=== PATIENT | male | born 1950 | race Caucasian/White ===

== ENCOUNTER 2017-04-11 14:36 | Inpatient (IN) | payer OTHER ==
[~2017-04-11] VITALS: Ht 177.8 cm; Wt 134.3 kg
[~2017-04-11 14:36] MED LIST: AMOX1TAB61 PO; FURO-68 PO; FURO20TA3 PO; GLIP10TA13 PO; METF-620 PO; Mineral Oil/Petrolatum,White TP
[2017-04-11] MEDS ORDERED: GLIP10TA13 PO (16:45)
[2017-04-11] MEDS ORDERED: [UNRECOGNIZED DRUG - OTHER] PO (16:45)
[2017-04-11] MEDS ORDERED: METF-620 PO (16:45)
[2017-04-11] MEDS ORDERED: DEXTROSE 50% 25 GM / 50ML DISP.SYRIN. IV PRN ×2 (17:00→17:30)
[2017-04-11] MEDS ORDERED: ACETAMINOPHEN 500 MG TABLET PO PRN (17:30)
[2017-04-11] MEDS ORDERED: ONDANSETRON PF 4 MG/2 ML VIAL. IV PRN (17:30)
[2017-04-11] MEDS ORDERED: 0.9 % SODIUM CHLORIDE 10 ML DISP.SYRIN. IV PRN (17:30)
[2017-04-11] MEDS ORDERED: GABA-586 PO (17:36)
[2017-04-11] MEDS: INSULIN ASPART 300 UNITS/3 ML INSULN.PEN SQ SCH ×2 (17:52→17:54)
[2017-04-11] MEDS: VANCOMYCIN PER PHARMACY MC PRN (18:31)
[2017-04-11] MEDS: PIPERACILLIN/TAZOBACTAM 3.375 GM in IV NORMAL SALINE 50ML 50 ML IV SCH ×2 (18:32→23:45)
[2017-04-11 19:00] VITALS: BP 122/60
[2017-04-11] MEDS: VANCOMYCIN 2 GM in IV NORMAL SALINE 500ML BAG 500 ML IV SCH (19:44)
[2017-04-11] MEDS ORDERED: GABAPENTIN 300 MG CAPSULE. PO SCH (21:00)
[2017-04-11] MEDS ORDERED: INSULIN ASPART 300 UNITS/3 ML INSULN.PEN SQ ONE (21:00)
[2017-04-11] MEDS: INSULIN DETEMIR 300 UNITS/3 ML INSULN.PEN. SQ SCH (21:17)
[2017-04-11] MEDS ORDERED: GABAPENTIN 300 MG CAPSULE. PO ONE (21:30)
[2017-04-11 23:00] VITALS: BP 128/73
[2017-04-12 03:00] VITALS: BP 136/74
[2017-04-12 04:42] LABS: BASO % 1 % (0-3); EOS % 3 % (0-3); HEMATOCRIT 41.4 % (39.0-53.0); HEMOGLOBIN 13.9 g/dL (13.0-17.5); LYMPH % 37 % (24-48); MEAN CORPUSCULAR HEMOGLOBIN 30 pg (25-35); MEAN CORPUSCULAR HGB CONC 33 g/dL (31-37); MEAN CORPUSCULAR VOLUME 90 fL (79-100); MONO % 8 % (0-9); NEUT % 51 % (31-73); PLATELET COUNT 129 x10^3/uL (140-400); RED BLOOD COUNT 4.63 x10^6/uL (4.30-5.70); WHITE BLOOD COUNT 5.5 x10^3/uL (4.0-11.0)
[2017-04-12 05:02] LABS: ALBUMIN 2.5 g/dL (3.4-5.0); ALBUMIN/GLOBULIN RATIO 0.8 (1.0-1.7); CALCIUM 8.6 mg/dL (8.5-10.1); CREATININE 1.4 mg/dL (0.7-1.3); GFR 50.7; TOTAL BILIRUBIN 0.8 mg/dL (0.2-1.0); TOTAL PROTEIN 5.7 g/dL (6.4-8.2)
[2017-04-12 05:05] LABS: POTASSIUM 2.9 mmol/L (3.5-5.1)
[2017-04-12] MEDS: PIPERACILLIN/TAZOBACTAM 3.375 GM in IV NORMAL SALINE 50ML 50 ML IV SCH ×3 (05:57→17:26)
[2017-04-12 07:00] VITALS: BP 117/73
[2017-04-12] MEDS: INSULIN ASPART 300 UNITS/3 ML INSULN.PEN SQ SCH ×6 (08:00→17:25)
[2017-04-12] MEDS: POTASSIUM CHLORIDE 20 MEQ TABLET.ER. PO SCH ×3 (08:00→17:20)
[2017-04-12] MEDS ORDERED: INSULIN ASPART 300 UNITS/3 ML INSULN.PEN SQ SCH (08:00)
[2017-04-12] MEDS: VANCOMYCIN 2 GM in IV NORMAL SALINE 500ML BAG 500 ML IV SCH ×2 (08:19→20:16)
--- NOTE | 2017-04-12 08:35 | RAD ---
Left foot radiographs History: Ulceration of the great toe on the plantar surface. Diabetic. Comparison: None. Findings: AP, lateral, and oblique views of the left foot. No acute osseous abnormality or osteolysis is appreciated. Bandage has been applied to the first digit. No radiopaque foreign body is seen. There is soft tissue swelling of the forefoot. Plantar calcaneal and Achilles tendon insertional enthesophytes are present. Impression: No osteolysis to suggest osteomyelitis is identified, although radiographic evidence of such would be a relatively late finding.
--- NOTE | 2017-04-12 08:58 | PDOC ---
PROGRESS NOTES Subjective Subjective Patient feels swelling in feet is improving, denies pain. Objective Objective Vital Signs Date Time Temp Pulse Resp B/P (MAP) Pulse Ox O2 Delivery O2 Flow Rate FiO2 04/12/17 07:00 97.4 63 20 117/73 (88) 93 Room Air 97.4 Intake and Output 04/12/17 07:00 Intake Total 400 ml Output Total 500 ml Balance -100 ml Intake Oral 400 ml Output Urine Total 500 ml # Voids 1 Physical Exam Abdomen: Normal bowel sounds, Soft, No tenderness Heart: Regular rate Extremities: Other (2+ pitting edema bilateral LE's with chronic venous stasis changes, ulcers on left leg and left great toe covered by dressings) General: Alert, Oriented X3, No acute distress Lungs: Other (BS decreased throughout but otherwise CTA) Plan Plan of Care 1. Cellulitis left great toe with ulcer - xrays did not show evidence of osteomyelitis. Have started patient on Vancomycin and Zosyn, ID consult pending. Continue wound care, patient advised to elevate legs as much as possible. 2. DM2 - had been out of control prior to admission with recent A1C 12.9 and glucose over 500 on office lab. Patient reports he has not been compliant with diet at home. Possibility of needing to start insulin discussed with him, he is considering. C peptide ordered and pending. Continue insulins while here, glucose much improved this AM after Levemir last night. 3. hypokalemia - replace po and follow lab. 4. peripheral neuropathy with pain - stable, continue Gabapentin. Comment Review of Relevant I have reviewed the following items aakash (where applicable) has been applied. Labs Laboratory Tests Test 04/11/17 17:06 04/11/17 20:33 04/12/17 04:30 04/12/17 07:17 Glucose (Fingerstick) 360 mg/dL (70-99) 351 mg/dL (70-99) 104 mg/dL (70-99) White Blood Count 5.5 x10^3/uL (4.0-11.0) Red Blood Count 4.63 x10^6/uL (4.30-5.70) Hemoglobin 13.9 g/dL (13.0-17.5) Hematocrit 41.4 % (39.0-53.0) Mean Corpuscular Volume 90 fL (79-100) Mean Corpuscular Hemoglobin 30 pg (25-35) Mean Corpuscular Hemoglobin Concent 33 g/dL (31-37) Red Cell Distribution Width 13.0 % (11.5-14.5) Platelet Count 129 x10^3/uL (140-400) Neutrophils (%) (Auto) 51 % (31-73) Lymphocytes (%) (Auto) 37 % (24-48) Monocytes (%) (Auto) 8 % (0-9) Eosinophils (%) (Auto) 3 % (0-3) Basophils (%) (Auto) 1 % (0-3) Neutrophils # (Auto) 2.8 x10^3uL (1.8-7.7) Lymphocytes # (Auto) 2.0 x10^3/uL (1.0-4.8) Monocytes # (Auto) 0.5 x10^3/uL (0.0-1.1) Eosinophils # (Auto) 0.2 x10^3/uL (0.0-0.7) Basophils # (Auto) 0.0 x10^3/uL (0.0-0.2) Sodium Level 145 mmol/L (136-145) Potassium Level 2.9 mmol/L (3.5-5.1) Chloride Level 106 mmol/L (98-107) Carbon Dioxide Level 31 mmol/L (21-32) Anion Gap 8 (6-14) Blood Urea Nitrogen 13 mg/dL (8-26) Creatinine 1.4 mg/dL (0.7-1.3) Estimated GFR (Cockcroft-Gault) 50.7 BUN/Creatinine Ratio 9 (6-20) Glucose Level 105 mg/dL (70-99) Calcium Level 8.6 mg/dL (8.5-10.1) Total Bilirubin 0.8 mg/dL (0.2-1.0) Aspartate Amino Transf (AST/SGOT) 28 U/L (15-37) Alanine Aminotransferase (ALT/SGPT) 30 U/L (16-63) Alkaline Phosphatase 83 U/L (46-116) Total Protein 5.7 g/dL (6.4-8.2) Albumin 2.5 g/dL (3.4-5.0) Albumin/Globulin Ratio 0.8 (1.0-1.7) Laboratory Tests Test 04/11/17 17:06 04/11/17 20:33 04/12/17 04:30 04/12/17 07:17 Glucose (Fingerstick) 360 mg/dL (70-99) 351 mg/dL (70-99) 104 mg/dL (70-99) White Blood Count 5.5 x10^3/uL (4.0-11.0) Red Blood Count 4.63 x10^6/uL (4.30-5.70) Hemoglobin 13.9 g/dL (13.0-17.5) Hematocrit 41.4 % (39.0-53.0) Mean Corpuscular Volume 90 fL (79-100) Mean Corpuscular Hemoglobin 30 pg (25-35) Mean Corpuscular Hemoglobin Concent 33 g/dL (31-37) Red Cell Distribution Width 13.0 % (11.5-14.5) Platelet Count 129 x10^3/uL (140-400) Neutrophils (%) (Auto) 51 % (31-73) Lymphocytes (%) (Auto) 37 % (24-48) Monocytes (%) (Auto) 8 % (0-9) Eosinophils (%) (Auto) 3 % (0-3) Basophils (%) (Auto) 1 % (0-3) Neutrophils # (Auto) 2.8 x10^3uL (1.8-7.7) Lymphocytes # (Auto) 2.0 x10^3/uL (1.0-4.8) Monocytes # (Auto) 0.5 x10^3/uL (0.0-1.1) Eosinophils # (Auto) 0.2 x10^3/uL (0.0-0.7) Basophils # (Auto) 0.0 x10^3/uL (0.0-0.2) Sodium Level 145 mmol/L (136-145) Potassium Level 2.9 mmol/L (3.5-5.1) Chloride Level 106 mmol/L (98-107) Carbon Dioxide Level 31 mmol/L (21-32) Anion Gap 8 (6-14) Blood Urea Nitrogen 13 mg/dL (8-26) Creatinine 1.4 mg/dL (0.7-1.3) Estimated GFR (Cockcroft-Gault) 50.7 BUN/Creatinine Ratio 9 (6-20) Glucose Level 105 mg/dL (70-99) Calcium Level 8.6 mg/dL (8.5-10.1) Total Bilirubin 0.8 mg/dL (0.2-1.0) Aspartate Amino Transf (AST/SGOT) 28 U/L (15-37) Alanine Aminotransferase (ALT/SGPT) 30 U/L (16-63) Alkaline Phosphatase 83 U/L (46-116) Total Protein 5.7 g/dL (6.4-8.2) Albumin 2.5 g/dL (3.4-5.0) Albumin/Globulin Ratio 0.8 (1.0-1.7) Medications Current Medications Insulin Aspart (NovoLOG) 0-9 UNITS TIDWMEALS SQ Last administered on 04/11/17 17:52; Start 04/11/17 at 17:00 Dextrose (Dextrose 50%-Water Syringe) 12.5 gm PRN Q15MIN PRN IV SEE COMMENTS; Start 04/11/17 at 17:00 Sodium Chloride (Normal Saline Flush) 3 ml PRN DAILY PRN IV AFTER MEDS AND BLOOD DRAWS; Start 04/11/17 at 17:30 Ondansetron HCl (Zofran) 4 mg PRN Q6HRS PRN IV NAUSEA/VOMITING; Start 04/11/17 at 17:30 Insulin Detemir (Levemir) 10 units QHS SQ Last administered on 04/11/17 21:17; Start 04/11/17 at 21:00 Insulin Aspart (NovoLOG) 0-9 UNITS TIDWMEALS SQ ; Start 04/12/17 at 08:00; Stop 04/12/17 at 08:00; Status DC Dextrose (Dextrose 50%-Water Syringe) 12.5 gm PRN Q15MIN PRN IV SEE COMMENTS; Start 04/11/17 at 17:30 Insulin Aspart (NovoLOG) 10 units TIDAC SQ Last administered on 04/12/17 08:27 ; Start 04/11/17 at 18:00 Vancomycin HCl (Vanco Per Pharmacy) 1 each PRN DAILY PRN MC SEE COMMENTS Last administered on 04/11/17 18:31; Start 04/11/17 at 17:30 Piperacillin Sod/ Tazobactam Sod 3.375 gm/Sodium Chloride 50 ml @ 100 mls/hr Q6HRS IV Last administered on 04/12/17 05:57; Start 04/11/17 at 18:00 Acetaminophen (Tylenol) 1,000 mg PRN Q6HRS PRN PO MILD PAIN / TEMP; Start at 17:30 Metformin HCl (Glucophage) 1,000 mg BIDWMEALS PO Last administered on 04/12/17 08:19; Start 04/11/17 at 18:00 Vancomycin HCl 2 gm/Sodium Chloride 500 ml @ 250 mls/hr Q12H IV Last administered on 04/12/17 08:19; Start 04/11/17 at 20:00 Vancomycin HCl 1 each 1X ONCE MC Last administered on 04/12/17 05:30; Start at 05:30; Stop 04/12/17 at 05:31; Status DC Gabapentin (Neurontin) 300 mg BID PO Last administered on 04/11/17 21:12; Start 04/11/17 at 21:00; Stop 04/11/17 at 21:19; Status DC Insulin Aspart (NovoLOG) 10 units 1X ONCE SQ Last administered on 04/11/17 21: 17; Start 04/11/17 at 21:00; Stop 04/11/17 at 21:01; Status DC Gabapentin (Neurontin) 300 mg 1X ONCE PO Last administered on 04/11/17 21:34; Start 04/11/17 at 21:30; Stop 04/11/17 at 21:31; Status DC Gabapentin (Neurontin) 600 mg HS PO ; Start 04/12/17 at 21:00 Potassium Chloride (Klor-Con) 20 meq TIDWMEALS PO Last administered on 08:00; Start 04/12/17 at 08:00 Vancomycin HCl 1 each 1X ONCE MC ; Start 04/13/17 at 07:30; Stop 04/13/17 at 07: 31 Active Scripts Active Gabapentin 300 Mg Capsule 300 Mg PO BID 60 Days Reported Glipizide 10 Mg Tablet 2 Tab PO BID Metformin Hcl 1,000 Mg Tablet 1,000 Mg PO BIDWMEALS Vitals/I & O Vital Sign - Last 24 Hours 04/11/17 04/11/17 04/11/17 04/11/17 19:00 19:15 20:00 23:00 Temp 97.6 97.5 97.6 97.5 Pulse 72 71 Resp 18 18 B/P (MAP) 122/60 (80) 128/73 (91) Pulse Ox 96 96 O2 Delivery Room Air Room Air Room Air Room Air 04/12/17 04/12/17 03:00 07:00 Temp 97.5 97.4 97.5 97.4 Pulse 64 63 Resp 18 20 B/P (MAP) 136/74 (94) 117/73 (88) Pulse Ox 94 93 O2 Delivery Room Air Room Air Intake and Output 04/11/17 04/11/17 04/12/17 15:00 23:00 07:00 Intake Total 400 ml Output Total 500 ml Balance 400 ml -500 ml RENATE PEREZ MD Apr 12, 2017 08:58
--- NOTE | 2017-04-12 09:13 | ACF ---
Admission Forms Criteria CELLULITIS Clinical Indications for Admission to Inpatient Care (Place 'X' for any and all applicable criteria): Admission is indicated for ANY ONE of the following(1)(2)(3)(4)(5): [ ]I. Limb-threatening infection [ ]II. High-risk comorbid condition as indicated by ANY ONE of the following: [ ]a) Uncontrolled diabetes (eg, HbA1c greater than 10% (0.1)) [ ]b) Cirrhosis [ ]c) Neutropenia [ ]d) Asplenia [ ]e) Immunosuppression [ ]f) Symptomatic heart failure [ ]III. Failure of outpatient therapy as indicated by ALL of the following: [ ]a) Progression or no improvement after adequate trial (minimum of 48 hours, with longer period for stable lower extremity infection) [ ]b) Adequate antibiotic regimen as indicated by use of ANY ONE of the following: [ ]i) First-generation cephalosporin (e.g., cephalexin) [ ]ii) Antistaphylococcal penicillin (e.g., dicloxacillin) [ ]iii) Penicillin-allergic patient regimen (clindamycin, extended-spectrum fluoroquinolone, or doxycycline) [ ]iv) Resistant organism (eg, methicillin-resistant Staphylococcus aureus) regimen (6) [ ]c) Outpatient intravenous therapy regimen is not appropriate due to ANY ONE of the following. (7)(8)(9)(10): [ ]i) It was tried and was not successful (eg, progression of infection). [ ]ii) It is not available or cannot be arranged in a clinically appropriate time frame (e.g., the next day). [ ]iii) Clinical presentation (eg, acuity of infection, rapidity of progression, confirmed or suspected bacteremia) is judged to require ALL of the following: [ ]1) Immediate initiation of intravenous therapy ( eg, cannot wait for next day) [ ]2) Intensity of patient monitoring and observation (eg, vital sign measurement, checks for infection progression) that cannot be provided at other than inpatient level of care [ ]IV. Mental status changes [ ]V. Bacteremia [ ]. Hemodynamic instability [ ]VII. Suspected necrotizing soft tissue infection (e.g., gas in tissue)(11)( 12) [ ]VIII. Orbital infection (13)(14) [ ]IX. Associated surgical procedure (e.g., abscess drainage, debridement) not amenable to outpatient, emergency department, or observation care [ ]X. Cutaneous gangrene [ ]XI. High fever (temperature greater than 39.5 degrees C (103.1 degrees F) (oral)) not responsive to outpatient, emergency department, or observation care therapy [X]XIII. Inpatient admission required rather than observation care (Also use Cellulitis: Observation Care as appropriate) because of ANY ONE of the following : [ ]a) Periorbital or perineal infection that is severe or worsening [ ]b) Severe pain requiring acute inpatient management [ ]c) IV fluid to replace significant ongoing (e.g., for over 24 hours) losses (greater than 3L/m2 per day) [ ]d) Compartment syndrome monitoring (17) [ ]e) Strict or protective (eg, laminar flow) isolation [ ]f) Urgent debridement or skin grafting [ ]g) Bone or joint debridement [ ]h) Immediate inpatient surgery [X]i) Other condition, treatment or monitoring requiring inpatient admission Extended stay beyond goal length of stay may be needed for (1)(18): [ ]a) Necrotizing soft tissue infection or fasciitis [ ]b) Gram-negative infection [ ]c) Methicillin-resistant Staphylococcal aureus (MRSA) infection [ ]d) Peripheral venous insufficiency with cellulitis [ ]e) Extensive edema [ ]f) Sepsis or continued Hemodynamic instability [ ]g) Continued high fever or mental status change [ ]h) Bacteremia [ ]i) Active serious comorbid conditions ( eg, heart failure, renal insufficiency) The original [employer] content created by [employer] has been revised. The portions of the content which have been revised are identified through the use of italic text or in bold, and [facility] has neither reviewed nor approved the modified material. All other unmodified content is copyright [employer] [facility], 1928–1983[employer] Please see references footnoted in the original [employer] [facility], [facility] edition 2016 Admission Criteria Met?: Yes DAMON OSULLIVAN Apr 12, 2017 09:13
--- NOTE | 2017-04-12 09:40 | HP ---
ADMIT DATE: 04/11/2017 CHIEF COMPLAINT: Sore on foot. HISTORY OF PRESENT ILLNESS: The patient is a 67-year-old diabetic male who was seen in our office on the day of admission with the above complaint. He had been seen a week previous due to increased erythema in his left leg. At that time, he was felt to be suffering from cellulitis and was given 7 days of Keflex. The patient reported that he took the medication as prescribed and the redness in his leg seemed a little bit better; however, he noticed a sore on the bottom of his left great toe. There was no pain associated with it as he has significant peripheral neuropathy, but it did have some drainage. When seen in the office, he was found to have increased cellulitis of his foot with malodorous drainage of the wound and he was advised hospitalization for further treatment. He reluctantly agreed to this and was directly admitted last evening and started on IV antibiotics. PAST MEDICAL HISTORY: Diabetes mellitus type 2, uncontrolled; chronic venous insufficiency; peripheral neuropathy; morbid obesity; obstructive sleep apnea. PAST SURGICAL HISTORY: Cataract extraction. ALLERGIES: The patient has no known drug allergies. HOME MEDICATIONS: Metformin 1000 mg b.i.d., aspirin 81 mg daily, furosemide 40 mg 2 tablets daily. The patient had been prescribed glipizide in February, but had apparently not started taking it as there was miscommunication about where his prescriptions had been sent. FAMILY HISTORY: Noncontributory. SOCIAL HISTORY: The patient is . He is a nonsmoker. He does not drink alcohol to excess. REVIEW OF SYSTEMS: The patient denies fever or chills. He denies cough or shortness of breath. He denies chest pain or palpitations. He denies abdominal pain, nausea, or vomiting. He has chronic lower extremity edema, which had seemed worse recently. He had resumed taking gabapentin due to some chronic neuropathic pain and felt that this was helping somewhat. He admits that he has not been compliant with a diabetic diet. PHYSICAL EXAMINATION: GENERAL: The patient is alert and oriented x 3, resting comfortably in bed, in no acute distress. HEENT: PERRL, EOMI, sclerae clear. Oropharynx: Mucous membranes moist. NECK: Supple, without lymphadenopathy. CHEST: Clear to auscultation. CARDIOVASCULAR: Regular rhythm without murmur. ABDOMEN: Soft, nontender, normoactive bowel sounds are present. EXTREMITIES: Bilateral lower extremities have 2+ pitting edema with chronic venous stasis changes. There are shallow ulcers on the left leg and on the plantar aspect of the left great toe. These are covered by dressings at this time. ASSESSMENT AND PLAN: 1. Cellulitis of the left great toe with a diabetic ulcer. X-rays at admission did not show evidence of osteomyelitis. The patient's white count is within normal limits. We have started the patient on vancomycin and Zosyn and ID consult is pending. We will continue wound care and the patient is advised to elevate his legs as much as possible while he is here. 2. Diabetes mellitus type 2. This has been out of control with a recent A1c of 12.9 and a glucose over 500 on office lab. The patient feels this is due to dietary and medication noncompliance. The possibility of having to start insulin has been discussed with him. He is reluctantly considering this. A C-peptide has been ordered and is pending. The patient's blood sugar has much improved this morning after starting insulin last night. We will continue insulins and follow his fingersticks. 3. Hypokalemia. Oral replacement has been ordered for this. We will follow lab. 4. Peripheral neuropathy with chronic neuropathic pain. This is stable, continue gabapentin. RENATE PEREZ MD DR: SURAJ/aiden JOB#: [id number] / [id number] SUDHEER
[2017-04-12 11:00] VITALS: BP 115/79
[2017-04-12] MEDS: VANCOMYCIN PER PHARMACY MC PRN (13:29)
--- NOTE | 2017-04-12 14:04 | PDOC ---
Infectious Disease Note Vital Sign Vital Signs Vital Signs Date Time Temp Pulse Resp B/P (MAP) Pulse Ox O2 Delivery O2 Flow Rate FiO2 04/12/17 11:00 98.0 65 20 115/79 (91) 95 Room Air 98.0 Labs Lab Laboratory Tests Test 04/11/17 17:06 04/11/17 20:33 04/12/17 04:30 04/12/17 07:17 Glucose (Fingerstick) 360 mg/dL (70-99) 351 mg/dL (70-99) 104 mg/dL (70-99) White Blood Count 5.5 x10^3/uL (4.0-11.0) Red Blood Count 4.63 x10^6/uL (4.30-5.70) Hemoglobin 13.9 g/dL (13.0-17.5) Hematocrit 41.4 % (39.0-53.0) Mean Corpuscular Volume 90 fL (79-100) Mean Corpuscular Hemoglobin 30 pg (25-35) Mean Corpuscular Hemoglobin Concent 33 g/dL (31-37) Red Cell Distribution Width 13.0 % (11.5-14.5) Platelet Count 129 x10^3/uL (140-400) Neutrophils (%) (Auto) 51 % (31-73) Lymphocytes (%) (Auto) 37 % (24-48) Monocytes (%) (Auto) 8 % (0-9) Eosinophils (%) (Auto) 3 % (0-3) Basophils (%) (Auto) 1 % (0-3) Neutrophils # (Auto) 2.8 x10^3uL (1.8-7.7) Lymphocytes # (Auto) 2.0 x10^3/uL (1.0-4.8) Monocytes # (Auto) 0.5 x10^3/uL (0.0-1.1) Eosinophils # (Auto) 0.2 x10^3/uL (0.0-0.7) Basophils # (Auto) 0.0 x10^3/uL (0.0-0.2) Sodium Level 145 mmol/L (136-145) Potassium Level 2.9 mmol/L (3.5-5.1) Chloride Level 106 mmol/L (98-107) Carbon Dioxide Level 31 mmol/L (21-32) Anion Gap 8 (6-14) Blood Urea Nitrogen 13 mg/dL (8-26) Creatinine 1.4 mg/dL (0.7-1.3) Estimated GFR (Cockcroft-Gault) 50.7 BUN/Creatinine Ratio 9 (6-20) Glucose Level 105 mg/dL (70-99) Calcium Level 8.6 mg/dL (8.5-10.1) Total Bilirubin 0.8 mg/dL (0.2-1.0) Aspartate Amino Transf (AST/SGOT) 28 U/L (15-37) Alanine Aminotransferase (ALT/SGPT) 30 U/L (16-63) Alkaline Phosphatase 83 U/L (46-116) Total Protein 5.7 g/dL (6.4-8.2) Albumin 2.5 g/dL (3.4-5.0) Albumin/Globulin Ratio 0.8 (1.0-1.7) Test 04/12/17 10:57 Glucose (Fingerstick) 144 mg/dL (70-99) Objective Assessment Infected diabetic ulcer left great toe Venous ulcers BLE Renal insufficiency Diabetic neuropathy Morbid obesity, BMI 42.5 Thrombocytopenia Plan Plan of Care Agree vanc and Zosyn Obtain culture Leg elevation Glucose control Weight management Monitor WBC, Cr and temp Thank you [id number] Attending Co-Sign The patient was seen and interviewed as well as examined at the bedside. The chart was reviewed. The case was discussed. Agree with the plan of care. antibiotics can be changed to po augmentin leg elevation wt loss off load glucose control all that he cannot do he says WAQAR GRAY APRN Apr 12, 2017 14:04 DAVE FRANCO MD Apr 12, 2017 14:54
[2017-04-12 15:00] VITALS: BP 122/70
[2017-04-12 19:49] VITALS: BP 122/59
[2017-04-12] MEDS ORDERED: GABAPENTIN 300 MG CAPSULE. PO SCH (21:00)
[2017-04-12] MEDS: INSULIN DETEMIR 300 UNITS/3 ML INSULN.PEN. SQ SCH (21:38)
[2017-04-12 23:06] VITALS: BP 115/59
[2017-04-13] MEDS: PIPERACILLIN/TAZOBACTAM 3.375 GM in IV NORMAL SALINE 50ML 50 ML IV SCH ×2 (00:03→06:03)
--- NOTE | 2017-04-13 01:17 | CONS ---
DATE OF CONSULTATION: 04/11/2017 This is Wong Hanna, nurse practitioner, dictating for Dr. Walker Franco, Infectious Disease. REQUESTING PHYSICIAN: Dr. Alston. REASON FOR CONSULTATION: Diabetic foot ulcer. HISTORY OF PRESENT ILLNESS: This patient is a pleasant 67-year-old male with a 40-year history of type 2 diabetes as well as chronic insufficiency of the lower extremities. About a week and a half ago, he developed increased swelling, redness and warmth of the lower extremities, which improved after a 7-day course of Keflex. A few days ago he was wearing open clog shoes while gardening. He later noticed a spike from a woodchip embedded in the shoe. He believed it may have poked through the shoe into his left great toe; however, he is not sure due to severe neuropathy. He does not check his feet regularly due to the fact that he cannot see over large abdominal girth. In any event, his daughter examined his foot and noticed an ulcer had developed on the bottom of the left great toe with redness, swelling and drainage. The patient denies fevers, chills or sweats. An x-ray of the left foot showed no osteolysis evident. He was started on vancomycin and Zosyn per primary. The patient describes severe neuropathic type pain like electrical shocks in lower extremities. Due to chronic swelling in his legs he often develops ulcers off and on. He has a previous history of cellulitis of the lower extremities requiring IV antibiotics. PAST MEDICAL HISTORY: A 40-year history of type 2 diabetes mellitus, severe peripheral neuropathy, chronic venous insufficiency, morbid obesity, obstructive sleep apnea. History of heart attack, valvular heart disease, arthritis, depression. PAST SURGICAL HISTORY: Cataract extraction. SOCIAL HISTORY: The patient is . 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 Nonsmoker. FAMILY HISTORY: Positive for cardiovascular disease, blood disorder and chronic obstructive pulmonary disease. ALLERGIES: No known drug allergies. MEDICATIONS: Vancomycin, Zosyn, gabapentin, metformin, insulin, potassium, Zofran, acetaminophen. REVIEW OF SYSTEMS: The patient reports having a headache earlier that is since resolved. Denies visual changes. Denies nasal/sinus congestion or sore throat. He has bad teeth and has lost some. Denies shortness of air, cough or wheezing. Denies chest pain or palpitations. Denies nausea, vomiting, or diarrhea. Denies rash. Denies muscle aches or joint pain. He normally sleeps in a recliner. PHYSICAL EXAMINATION: GENERAL: Pleasant, overweight male sitting in a chair, in no apparent distress. VITAL SIGNS: Afebrile, blood pressure 115/79, heart rate 65, respiratory rate 20, pulse oximetry is 95% on room air. Weight is 296 pounds and BMI 42.5. HEENT: Pupils equally round. Normal conjunctivae. Oral mucosa is pink and moist. Some missing teeth. NECK: Supple, no adenopathy present. LUNGS: Clear to auscultation bilaterally. HEART: Normal S1 and S2. ABDOMEN: Obese, bowel sounds are present, soft, nontender. EXTREMITIES: Bilateral lower extremity 1+ edema. He has chronic venous changes with medial irregular ulcers with crusting. On the plantar side of the left great toe an superficial irregular shaped ulcer noted with minimal redness and drainage. Dorsalis pedis pulses palpable. No cyanosis. Both feet are soiled. SKIN: Without rash. Warm to touch. NEUROLOGIC: Alert and oriented x 3. He is ambulatory. LABORATORY DATA: Today, WBC 5.5, hemoglobin 13.9, platelet count 129,000. Sodium 145, potassium 2.9, creatinine 1.4, BUN 13, glucose 105, total bilirubin 0.8, AST 28, ALT 30, albumin 2.5. X-ray, left foot shows no osteolysis. IMPRESSION: 1. Infected diabetic ulcer of left great toe. 2. Venous ulcers bilateral lower extremities. 3. Renal insufficiency. 4. Diabetic neuropathy. 5. Morbid obesity with BMI 42.5. 6. Thrombocytopenia. PLAN: Diabetic ulcers are usually polymicrobial though not always. Agree with vancomycin and Zosyn for now. Check anaerobic, aerobic culture. Monitor WBC count, creatinine and temperature. Advice leg elevation to help reduce swelling. Local wound care and offload. Also discussed need for glucose control , diet and weight management. Thank you, Dr. Alston for asking me to participate in this patient's care. Should you have further questions or concerns, please call. Patient seen, examined and plan of care implemented by Dr. Walker Franco. WALKER FRANCO MD DR: KWESI/aiden JOB#: [id number] / [id number] SUDHEER
[2017-04-13 03:04] VITALS: BP 103/68
[2017-04-13 07:00] VITALS: BP 133/81
[2017-04-13] MEDS: INSULIN ASPART 300 UNITS/3 ML INSULN.PEN SQ SCH ×4 (07:30→12:56)
[2017-04-13] MEDS: VANCOMYCIN 2 GM in IV NORMAL SALINE 500ML BAG 500 ML IV SCH (08:00)
[2017-04-13 08:44] LABS: CALCIUM 8.5 mg/dL (8.5-10.1); CREATININE 1.3 mg/dL (0.7-1.3); GFR 55.2; POTASSIUM 4.3 mmol/L (3.5-5.1)
[2017-04-13] MEDS: POTASSIUM CHLORIDE 20 MEQ TABLET.ER. PO SCH ×2 (08:44→12:49)
[2017-04-13 11:00] VITALS: BP 140/78
--- NOTE | 2017-04-13 11:03 | PDOC ---
Infectious Disease Note Subjective Subjective Feeling well Hoping to go home soon ROS ROS GEN: Denies fevers, chills, sweats CV: Denies chest pain RESP: Denies shortness of air, cough GI: Denies n/v/d Vital Sign Vital Signs Vital Signs Date Time Temp Pulse Resp B/P (MAP) Pulse Ox O2 Delivery O2 Flow Rate FiO2 04/13/17 08:10 Room Air 04/13/17 07:00 97.8 69 20 133/81 (98) 92 97.8 Physical Exam PHYSICAL EXAM GENERAL: Lying down, resting LUNGS: Clear to auscultation bilaterally. HEART: Normal S1 and S2. ABDOMEN: Obese, bowel sounds are present, soft, nontender. EXTREMITIES: Bilateral lower extremity 1+ edema. Chronic venous changes with medial irregular shaped ulcers with crusting. On the plantar side of the left great toe an superficial irregular shaped ulcer noted with minimal redness. Dorsalis pedis pulses palpable. No cyanosis. Both feet are soiled. SKIN: Without rash. Warm to touch. NEUROLOGIC: Alert and oriented x 3. Labs Lab Laboratory Tests Test 04/12/17 10:57 04/12/17 16:04 04/12/17 20:52 04/13/17 07:09 Glucose (Fingerstick) 144 mg/dL (70-99) 160 mg/dL (70-99) 148 mg/dL (70-99) 119 mg/dL (70-99) Test 04/13/17 07:45 Sodium Level 145 mmol/L (136-145) Potassium Level 4.3 mmol/L (3.5-5.1) Chloride Level 108 mmol/L (98-107) Carbon Dioxide Level 34 mmol/L (21-32) Anion Gap 3 (6-14) Blood Urea Nitrogen 13 mg/dL (8-26) Creatinine 1.3 mg/dL (0.7-1.3) Estimated GFR (Cockcroft-Gault) 55.2 Glucose Level 133 mg/dL (70-99) Calcium Level 8.5 mg/dL (8.5-10.1) Vancomycin Level Trough 25.2 mcg/mL (10.0-20.0) Vancomycin Last Dose Date 04/12/17 Vancomycin Last Dose Time 2000 Micro GRAM STAIN Final WBCS OCCASIONAL ORGANISMS NONE SEEN Objective Assessment Infected diabetic ulcer left great toe Venous ulcers BLE Renal insufficiency Diabetic neuropathy Morbid obesity, BMI 42.5 Thrombocytopenia Plan Plan of Care ok to change abx to Augmentin vanc trough 25.2 Leg elevation Glucose control Diet and weight management Local wound care and offload Attending Co-Sign The patient was seen and interviewed as well as examined at the bedside. The chart was reviewed. The case was discussed. Agree with the plan of care. WAQAR GRAY APRN Apr 13, 2017 11:03 DAVE FRANCO MD Apr 13, 2017 12:52
[2017-04-13] MEDS ORDERED: INSU100I27 SQ (12:50)
[2017-04-13] MEDS ORDERED: AMOX1TAB61 PO (12:50)
[2017-04-13] MEDS ORDERED: AMOXICILLIN/K CLAV 875/125MG TABLET. PO SCH (13:00)
--- NOTE | 2017-04-13 13:20 | PDOC3 ---
Discharge Summary Visit Information Date of Admission: Apr 11, 2017 Date of Discharge: Apr 13, 2017 Admitting Diagnosis Comment: cellulitis Final Diagnosis diabetic toe ulcer Brief Hospital Course Allergies Allergies Coded Allergies Type Severity Reaction Last Updated Verified No Known Drug Allergies 07/20/14 No Vital Signs Vital Signs Date Time Temp Pulse Resp B/P (MAP) Pulse Ox O2 Delivery O2 Flow Rate FiO2 04/13/17 11:00 98.2 63 20 140/78 (98) 94 Room Air 98.2 Lab Results Laboratory Tests Test 04/11/17 17:06 04/11/17 20:33 04/12/17 04:30 04/12/17 07:17 Glucose (Fingerstick) 360 mg/dL (70-99) 351 mg/dL (70-99) 104 mg/dL (70-99) White Blood Count 5.5 x10^3/uL (4.0-11.0) Red Blood Count 4.63 x10^6/uL (4.30-5.70) Hemoglobin 13.9 g/dL (13.0-17.5) Hematocrit 41.4 % (39.0-53.0) Mean Corpuscular Volume 90 fL (79-100) Mean Corpuscular Hemoglobin 30 pg (25-35) Mean Corpuscular Hemoglobin Concent 33 g/dL (31-37) Red Cell Distribution Width 13.0 % (11.5-14.5) Platelet Count 129 x10^3/uL (140-400) Neutrophils (%) (Auto) 51 % (31-73) Lymphocytes (%) (Auto) 37 % (24-48) Monocytes (%) (Auto) 8 % (0-9) Eosinophils (%) (Auto) 3 % (0-3) Basophils (%) (Auto) 1 % (0-3) Neutrophils # (Auto) 2.8 x10^3uL (1.8-7.7) Lymphocytes # (Auto) 2.0 x10^3/uL (1.0-4.8) Monocytes # (Auto) 0.5 x10^3/uL (0.0-1.1) Eosinophils # (Auto) 0.2 x10^3/uL (0.0-0.7) Basophils # (Auto) 0.0 x10^3/uL (0.0-0.2) Sodium Level 145 mmol/L (136-145) Potassium Level 2.9 mmol/L (3.5-5.1) Chloride Level 106 mmol/L (98-107) Carbon Dioxide Level 31 mmol/L (21-32) Anion Gap 8 (6-14) Blood Urea Nitrogen 13 mg/dL (8-26) Creatinine 1.4 mg/dL (0.7-1.3) Estimated GFR (Cockcroft-Gault) 50.7 BUN/Creatinine Ratio 9 (6-20) Glucose Level 105 mg/dL (70-99) C-Peptide 5.7 ng/mL (1.1-4.4) Calcium Level 8.6 mg/dL (8.5-10.1) Total Bilirubin 0.8 mg/dL (0.2-1.0) Aspartate Amino Transf (AST/SGOT) 28 U/L (15-37) Alanine Aminotransferase (ALT/SGPT) 30 U/L (16-63) Alkaline Phosphatase 83 U/L (46-116) Total Protein 5.7 g/dL (6.4-8.2) Albumin 2.5 g/dL (3.4-5.0) Albumin/Globulin Ratio 0.8 (1.0-1.7) Test 04/12/17 10:57 04/12/17 16:04 04/12/17 20:52 04/13/17 07:09 Glucose (Fingerstick) 144 mg/dL (70-99) 160 mg/dL (70-99) 148 mg/dL (70-99) 119 mg/dL (70-99) Test 04/13/17 07:45 04/13/17 11:53 Sodium Level 145 mmol/L (136-145) Potassium Level 4.3 mmol/L (3.5-5.1) Chloride Level 108 mmol/L (98-107) Carbon Dioxide Level 34 mmol/L (21-32) Anion Gap 3 (6-14) Blood Urea Nitrogen 13 mg/dL (8-26) Creatinine 1.3 mg/dL (0.7-1.3) Estimated GFR (Cockcroft-Gault) 55.2 Glucose Level 133 mg/dL (70-99) Calcium Level 8.5 mg/dL (8.5-10.1) Vancomycin Level Trough 25.2 mcg/mL (10.0-20.0) Vancomycin Last Dose Date 04/12/17 Vancomycin Last Dose Time 1999 Glucose (Fingerstick) 187 mg/dL (70-99) Laboratory Tests Test 04/12/17 16:04 04/12/17 20:52 04/13/17 07:09 04/13/17 07:45 Glucose (Fingerstick) 160 mg/dL (70-99) 148 mg/dL (70-99) 119 mg/dL (70-99) Sodium Level 145 mmol/L (136-145) Potassium Level 4.3 mmol/L (3.5-5.1) Chloride Level 108 mmol/L (98-107) Carbon Dioxide Level 34 mmol/L (21-32) Anion Gap 3 (6-14) Blood Urea Nitrogen 13 mg/dL (8-26) Creatinine 1.3 mg/dL (0.7-1.3) Estimated GFR (Cockcroft-Gault) 55.2 Glucose Level 133 mg/dL (70-99) Calcium Level 8.5 mg/dL (8.5-10.1) Vancomycin Level Trough 25.2 mcg/mL (10.0-20.0) Vancomycin Last Dose Date 04/12/17 Vancomycin Last Dose Time 1999 Test 04/13/17 11:53 Glucose (Fingerstick) 187 mg/dL (70-99) Brief Hospital Course Mr. Hill is a 67 old who presented with poorly controlled diabetes and cellulitis of his lower extremities and a toe ulcer and was seen by wound care and ID and with leg elevation and IV antibiotics he has improved and is now on oral antibiotics and has wound care clinic f/u arranged. He wants to go home. He was placed on insulin here but likely won't take it at home. He is started on 10 days of Augmentin 875 mg bid. He initially had a low potassium but it was replaced. No complications while here Discharge Information Condition at Discharge: Improved, Stable Follow Up: Weeks (within [address] Alston and wound care clinic on ) Scheduled Gabapentin (Gabapentin), 300 MG PO BID Glipizide (Glipizide), 2 TAB PO BID, (Reported) Metformin Hcl (Metformin Hcl), 1,000 MG PO BIDWMEALS, (Reported) Discontinued Medications [chloromycetin], 20 MG PO BID, (Reported) ILDEFONSO SNYDER MD Apr 13, 2017 13:20
== END 2017-04-13 14:17 | disposition home or self-care (01) | DRG 638 ==
LOC: 4 NORTH 15:47
PROVIDERS: ADMIT Family Medicine; ATTEND Family Medicine
DX: E11.621 Type 2 diabetes mellitus with foot ulcer (principal); Z68.41 Body mass index [BMI] 40.0-44.9, adult; E11.65 Type 2 diabetes mellitus with hyperglycemia; E66.01 Morbid (severe) obesity due to excess calories; E87.6 Hypokalemia; G47.33 Obstructive sleep apnea (adult) (pediatric); I87.2 Venous insufficiency (chronic) (peripheral); L03.032 Cellulitis of left toe; L97.529 Non-pressure chronic ulcer of other part of left foot with unspecified severity; F32.9 Major depressive disorder, single episode, unspecified; M19.90 Unspecified osteoarthritis, unspecified site; E11.40 Type 2 diabetes mellitus with diabetic neuropathy, unspecified; D69.6 Thrombocytopenia, unspecified; I25.2 Old myocardial infarction; Z82.49 Family history of ischemic heart disease and other diseases of the circulatory system; Z82.5 Family history of asthma and other chronic lower respiratory diseases; Z91.11 Patient's noncompliance with dietary regimen; Z91.14 Patient's other noncompliance with medication regimen; Z98.49 Cataract extraction status, unspecified eye; Z79.899 Other long term (current) drug therapy; Z79.82 Long term (current) use of aspirin; Z79.1 Long term (current) use of non-steroidal anti-inflammatories (NSAID); Z79.2 Long term (current) use of antibiotics
CPT/HCPCS: 36415; 73630; 80048; 80053; 80202; 82962; 84681; 85027; 87071; 87075; 87205; J1815; J2543; J3370; J7040

== ENCOUNTER → 2017-04-18 | Outpatient (CLI) | payer OTHER ==
[2017-04-13 11:00] VITALS: BP 140/78
[~2017-04-18] MED LIST changes: +GABA-586 PO; +INSU100I27 SQ; +[UNRECOGNIZED DRUG - OTHER] PO
== END | disposition home or self-care (01) ==
LOC: PMGWOUND 10:11
PROVIDERS: ATTEND Emergency Medicine Undersea and Hyperbaric Medicine
DX: E11.621 Type 2 diabetes mellitus with foot ulcer (principal); L97.521 Non-pressure chronic ulcer of other part of left foot limited to breakdown of skin; I87.313 Chronic venous hypertension (idiopathic) with ulcer of bilateral lower extremity; L97.211 Non-pressure chronic ulcer of right calf limited to breakdown of skin; L97.221 Non-pressure chronic ulcer of left calf limited to breakdown of skin; E11.40 Type 2 diabetes mellitus with diabetic neuropathy, unspecified; F32.9 Major depressive disorder, single episode, unspecified; E66.01 Morbid (severe) obesity due to excess calories; Z68.41 Body mass index [BMI] 40.0-44.9, adult; I25.2 Old myocardial infarction; M19.90 Unspecified osteoarthritis, unspecified site; E11.65 Type 2 diabetes mellitus with hyperglycemia
CPT/HCPCS: 11042

== ENCOUNTER → 2017-05-03 | Outpatient (CLI) | payer OTHER ==
[2017-04-13 11:00] VITALS: BP 140/78
== END | disposition home or self-care (01) ==
LOC: PMGWOUND 08:30
PROVIDERS: ATTEND Preventive Medicine Undersea and Hyperbaric Medicine
DX: E11.621 Type 2 diabetes mellitus with foot ulcer (principal); L97.521 Non-pressure chronic ulcer of other part of left foot limited to breakdown of skin; I87.313 Chronic venous hypertension (idiopathic) with ulcer of bilateral lower extremity; E11.622 Type 2 diabetes mellitus with other skin ulcer; L97.211 Non-pressure chronic ulcer of right calf limited to breakdown of skin; L97.221 Non-pressure chronic ulcer of left calf limited to breakdown of skin; E11.40 Type 2 diabetes mellitus with diabetic neuropathy, unspecified
CPT/HCPCS: 29581

== ENCOUNTER → 2017-05-06 | Outpatient (CLI) | payer OTHER ==
[2017-04-13 11:00] VITALS: BP 140/78
== END | disposition home or self-care (01) ==
LOC: PMGWOUND 10:26
PROVIDERS: ATTEND Emergency Medicine Undersea and Hyperbaric Medicine
DX: E11.621 Type 2 diabetes mellitus with foot ulcer (principal); L97.521 Non-pressure chronic ulcer of other part of left foot limited to breakdown of skin; I87.313 Chronic venous hypertension (idiopathic) with ulcer of bilateral lower extremity; E11.622 Type 2 diabetes mellitus with other skin ulcer; L97.211 Non-pressure chronic ulcer of right calf limited to breakdown of skin; L97.221 Non-pressure chronic ulcer of left calf limited to breakdown of skin; E11.40 Type 2 diabetes mellitus with diabetic neuropathy, unspecified; E66.01 Morbid (severe) obesity due to excess calories; F32.9 Major depressive disorder, single episode, unspecified; I25.2 Old myocardial infarction; M19.90 Unspecified osteoarthritis, unspecified site; Z68.41 Body mass index [BMI] 40.0-44.9, adult
CPT/HCPCS: 29581

== ENCOUNTER → 2017-05-09 | Outpatient (CLI) | payer OTHER ==
[2017-04-13 11:00] VITALS: BP 140/78
== END | disposition home or self-care (01) ==
LOC: PMGWOUND 08:19
PROVIDERS: ATTEND Emergency Medicine Undersea and Hyperbaric Medicine
DX: I87.313 Chronic venous hypertension (idiopathic) with ulcer of bilateral lower extremity (principal); E11.622 Type 2 diabetes mellitus with other skin ulcer; L97.211 Non-pressure chronic ulcer of right calf limited to breakdown of skin; L97.221 Non-pressure chronic ulcer of left calf limited to breakdown of skin; L97.521 Non-pressure chronic ulcer of other part of left foot limited to breakdown of skin; E11.621 Type 2 diabetes mellitus with foot ulcer; F32.9 Major depressive disorder, single episode, unspecified; E66.01 Morbid (severe) obesity due to excess calories; Z68.41 Body mass index [BMI] 40.0-44.9, adult; I25.2 Old myocardial infarction; E11.40 Type 2 diabetes mellitus with diabetic neuropathy, unspecified; M19.90 Unspecified osteoarthritis, unspecified site; Z98.49 Cataract extraction status, unspecified eye
CPT/HCPCS: 99214

== ENCOUNTER 2017-08-16 12:53 | Inpatient (IN) | payer OTHER ==
[~2017-08-16] VITALS: Ht 175.3 cm; Wt 129.3 kg
[~2017-08-16 12:53] MED LIST changes: +EPINEPHrine SYRINGE 1 MG/10 ML SYRINGE ONE; +EPINEPHrine VIAL 30 MG/30 ML VIAL ONE
[2017-08-16] MEDS ORDERED: IPRATRPIUM/ALBUTEROL 0.5/2.5MG 3 ML NEBU. NEB ONE (14:30)
--- NOTE | 2017-08-16 15:03 | EKG ---
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
[2017-08-16 15:10] LABS: BASO % 0 % (0-3); EOS % 0 % (0-3); HEMATOCRIT 52.8 % (39.0-53.0); HEMOGLOBIN 17.5 g/dL (13.0-17.5); LYMPH # 2.2 x10^3/uL (1.0-4.8); LYMPH % 19 % (24-48); MEAN CORPUSCULAR HEMOGLOBIN 30 pg (25-35); MEAN CORPUSCULAR HGB CONC 33 g/dL (31-37); MEAN CORPUSCULAR VOLUME 91 fL (79-100); MONO % 6 % (0-9); NEUT % 75 % (31-73); PLATELET COUNT 178 x10^3/uL (140-400); RED BLOOD COUNT 5.82 x10^6/uL (4.30-5.70); RED CELL DISTRIBUTION WIDTH 13.7 % (11.5-14.5)
[2017-08-16 15:27] LABS: CALCIUM 8.8 mg/dL (8.5-10.1); GFR 33.6; POTASSIUM 3.5 mmol/L (3.5-5.1)
[2017-08-16 15:34] LABS: ALBUMIN 3.8 g/dL (3.4-5.0); DIRECT BILIRUBIN 0.6 mg/dL (0.0-0.2); TOTAL BILIRUBIN 1.8 mg/dL (0.2-1.0); TOTAL PROTEIN 8.2 g/dL (6.4-8.2)
--- NOTE | 2017-08-16 15:47 | RAD ---
CHEST AP ONLY Clinical Indication: Shortness of air Comparison: Chest radiograph dated 01/14/2009. Findings: Normal lung volume. No focal consolidations. Normal pulmonary vasculature. No pleural effusion or pneumothorax. Mild cardiomegaly. The great vessels of the thorax are normal. No acute osseous abnormality. IMPRESSION: 1. No focal consolidation. 2. Mild cardiomegaly.
[2017-08-16] MEDS ORDERED: FUROSEMIDE 40 MG/4 ML VIAL. ONE (15:52)
[2017-08-16] MEDS ORDERED: FUROSEMIDE 40 MG/4 ML VIAL. IVP ONE ×2 (16:00→20:15)
[2017-08-16] MEDS ORDERED: ONDANSETRON PF 4 MG/2 ML VIAL. IV PRN (17:15)
[2017-08-16] MEDS ORDERED: MORPHINE SULFATE 2 MG/ML DISP.SYRIN. IV PRN (17:15)
[2017-08-16] MEDS ORDERED: ASPIRIN CHEWABLE 81 MG TABLET. PO ONE (17:30)
--- NOTE | 2017-08-16 18:06 | PHYS DOC ---
Past Medical History Past Medical History: Diabetes-Type II Past Surgical History: No Surgical History Alcohol Use: Rarely Drug Use: None Adult General Chief Complaint Chief Complaint: SHORTNESS OF BREATH HPI HPI 67-year-old male presenting to the emergency department today with worsening shortness of breath leg swelling abdominal soreness and orthopnea. This is started about 3 or 4 days ago. He reports chronically been on Lasix but denies having congestive heart failure. His doctor is Dr. Alston. Location lungs. Duration intermittent. Worse with walking. He denies chest pain fevers chills. He denies nausea or vomiting. Review of systems is negative for diaphoresis confusion cyanosis numbness weakness or tingling. All other review of systems is negative unless otherwise noted in history of present illness. ED course: 67-year-old male presenting to the emergency department today with worsening shortness of breath leg swelling. Triage vital signs show the patient to be hypoxic placed on 2 L nasal cannula which improved his oxygen saturations. Pertinent physical exam findings show crackles bilaterally in the patient's lungs along with pedal edema. He currently has compression stockings on. Abdomen is soft and nontender. Otherwise unremarkable examination. EKG obtained and reviewed by myself shows sinus tachycardia. ST segments congruent. Intervals show mildly prolonged QTC. Chest x-ray obtained by myself shows cardiomegaly with mild increase in pulmonary vascular. Blood work shows the patient has a mildly elevated troponin and a markedly elevated proBNP. This is consistent with the patient's acute congestive heart failure. I discussed the case with Dr. Brothers who is on for Dr. Alston at the time. I obtained a bed in the hospital for the patient in the cardiovascular care unit. The patient was given Lasix and aspirin here in the emergency department. I discussed case with our brokerage purchase and sale clerk Dr. Rangel. Per our discussion we will hold off on heparin or Lovenox at this time. Review of Systems Review of Systems SEE ABOVE. Current Medications Current Medications Current Medications Medications (Trade) Dose Ordered Sig/Vladimir Start Time Stop Time Status Last Admin Dose Admin Albuterol/ Ipratropium (Duoneb) 3 ml 1X ONCE 08/16/17 14:30 08/16/17 14:31 DC 08/16/17 14:46 3 ML Furosemide (Lasix) 40 mg STK-MED ONCE 08/16/17 15:52 08/16/17 15:53 DC Allergies Allergies Allergies Coded Allergies Type Severity Reaction Last Updated Verified No Known Drug Allergies 07/20/14 No Physical Exam Physical Exam SEE ABOVE Constitutional: Well developed, well nourished, no acute distress, non-toxic appearance. [] HENT: Normocephalic, atraumatic, bilateral external ears normal, oropharynx moist, no oral exudates, nose normal. [] Eyes: PERRLA, EOMI, conjunctiva normal, no discharge. [] Neck: Normal range of motion, no tenderness, supple, no stridor. [] Cardiovascular:Heart rate regular rhythm, no murmur [] Lungs & Thorax: Crackles bilaterally without wheezing. Abdomen: Bowel sounds normal, soft, no tenderness, no masses, no pulsatile masses. [] Skin: Warm, dry, no erythema, no rash. [] Back: No tenderness, no CVA tenderness. [] Extremities: No tenderness, no cyanosis, no clubbing, ROM intact, 3+ edema Neurologic: Alert and oriented X 3, normal motor function, normal sensory function, no focal deficits noted. [] Psychologic: Affect normal, judgement normal, mood normal. [] Current Patient Data Vital Signs Vital Signs Date Time Temp Pulse Resp B/P (MAP) Pulse Ox O2 Delivery O2 Flow Rate FiO2 08/16/17 16:04 100 22 122/82 (95) 93 Nasal Cannula 08/16/17 16:00 4.0 08/16/17 14:41 98.6 98.6 Lab Values Laboratory Tests Test 08/16/17 14:40 White Blood Count 12.0 x10^3/uL (4.0-11.0) H Red Blood Count 5.82 x10^6/uL (4.30-5.70) H Hemoglobin 17.5 g/dL (13.0-17.5) Hematocrit 52.8 % (39.0-53.0) Mean Corpuscular Volume 91 fL (79-100) Mean Corpuscular Hemoglobin 30 pg (25-35) Mean Corpuscular Hemoglobin Concent 33 g/dL (31-37) Red Cell Distribution Width 13.7 % (11.5-14.5) Platelet Count 178 x10^3/uL (140-400) Neutrophils (%) (Auto) 75 % (31-73) H Lymphocytes (%) (Auto) 19 % (24-48) L Monocytes (%) (Auto) 6 % (0-9) Eosinophils (%) (Auto) 0 % (0-3) Basophils (%) (Auto) 0 % (0-3) Neutrophils # (Auto) 9.0 x10^3uL (1.8-7.7) H Lymphocytes # (Auto) 2.2 x10^3/uL (1.0-4.8) Monocytes # (Auto) 0.8 x10^3/uL (0.0-1.1) Eosinophils # (Auto) 0.0 x10^3/uL (0.0-0.7) Basophils # (Auto) 0.0 x10^3/uL (0.0-0.2) Sodium Level 135 mmol/L (136-145) L Potassium Level 3.5 mmol/L (3.5-5.1) Chloride Level 94 mmol/L (98-107) L Carbon Dioxide Level 28 mmol/L (21-32) Anion Gap 13 (6-14) Blood Urea Nitrogen 22 mg/dL (8-26) Creatinine 2.0 mg/dL (0.7-1.3) H Estimated GFR (Cockcroft-Gault) 33.6 Glucose Level 337 mg/dL (70-99) H Calcium Level 8.8 mg/dL (8.5-10.1) Total Bilirubin 1.8 mg/dL (0.2-1.0) H Direct Bilirubin 0.6 mg/dL (0.0-0.2) H Aspartate Amino Transferase (AST) 39 U/L (15-37) H Alanine Aminotransferase (ALT) 68 U/L (16-63) H Alkaline Phosphatase 90 U/L (46-116) Troponin I Quantitative 0.061 ng/mL (0.000-0.055) TW-Szp-[id number]-Type Natriuretic Peptide 44521 pg/mL (0-124) H Total Protein 8.2 g/dL (6.4-8.2) Albumin 3.8 g/dL (3.4-5.0) Lipase 142 U/L (73-393) Laboratory Tests 08/16/17 14:40 Laboratory Tests 08/16/17 14:40 EKG EKG [] Radiology/Procedures Radiology/Procedures [] Course & Med Decision Making Course & Med Decision Making Pertinent Labs and Imaging studies reviewed. (See chart for details) [] Dragon Disclaimer Dragon Disclaimer This electronic medical record was generated, in whole or in part, using a voice recognition dictation system. Departure Departure Impression: Primary Impression: Acute congestive heart failure Additional Impressions: CHF (congestive heart failure) Pulmonary edema Elevated troponin Disposition: ADMITTED INPATIENT Admitting Physician: Joycelyn Alston Condition: IMPROVED Referrals: JOYCELYN ALSTON MD (PCP) Problem Qualifiers SARINA ROBBINS MD Aug 16, 2017 18:06
[2017-08-16 18:15] VITALS: BP 121/73
[2017-08-16 19:45] VITALS: BP 121/73
[2017-08-16 19:55] VITALS: BP 121/81
[2017-08-16] MEDS ORDERED: FURO-68 PO (20:00)
[2017-08-16] MEDS ORDERED: INSULIN DETEMIR 300 UNITS/3 ML INSULN.PEN. SQ SCH (21:00)
[2017-08-16] MEDS ORDERED: ENOXAPARIN 40 MG/0.4 ML SYRINGE. SQ SCH (21:00)
[2017-08-16] MEDS ORDERED: GABAPENTIN 300 MG CAPSULE. PO SCH (21:00)
--- NOTE | 2017-08-16 23:25 | PHYS DOC ---
Past Medical History Past Medical History: Diabetes-Type II Past Surgical History: No Surgical History Alcohol Use: Rarely Drug Use: None Adult General Chief Complaint Chief Complaint: code blue note HPI HPI Called to CVC for code blue. Patient reportedly in restroom & lost consciousness, found by RN to be pulseless & apneic, CPR started. Entire resuscitation effort completed on the floor of the room in the doorway of the restroom. When I arrived, CPR in progress & patient being placed on the monitor. Followed ACLS protocol. IV access had been lost, IO placed by RN, epi administered. Pulse checks showed PEA deteriorating to asystole. Accucheck was 300. Recent labs showed no significant electrolyte abnormality. Bagging by RT, ultimately I intubated the patient using glidescope & bagging continued. Unfortunately no return of spontaneous circulation was achieved. At no time did we identify a shockable rhythm or identify a pulse. Time of was called as documented by house admin on official code blue documentation. I discussed the case with Dr. Brothers who is convenience recycle center tech for Dr. Alston. The patient is & will be transferred to the [facility] [place]. Current Medications Current Medications Current Medications Medications (Trade) Dose Ordered Sig/Vladimir Start Time Stop Time Status Last Admin Dose Admin Albuterol/ Ipratropium (Duoneb) 3 ml 1X ONCE 08/16/17 14:30 08/16/17 14:31 DC 08/16/17 14:46 3 ML Furosemide (Lasix) 40 mg STK-MED ONCE 08/16/17 15:52 08/16/17 15:53 DC Allergies Allergies Allergies Coded Allergies Type Severity Reaction Last Updated Verified No Known Drug Allergies 07/20/14 No Current Patient Data Vital Signs Vital Signs Date Time Temp Pulse Resp B/P (MAP) Pulse Ox O2 Delivery O2 Flow Rate FiO2 08/16/17 16:04 100 22 122/82 (95) 93 Nasal Cannula 08/16/17 16:00 4.0 08/16/17 14:41 98.6 98.6 Lab Values Laboratory Tests Test 08/16/17 14:40 White Blood Count 12.0 x10^3/uL (4.0-11.0) H Red Blood Count 5.82 x10^6/uL (4.30-5.70) H Hemoglobin 17.5 g/dL (13.0-17.5) Hematocrit 52.8 % (39.0-53.0) Mean Corpuscular Volume 91 fL (79-100) Mean Corpuscular Hemoglobin 30 pg (25-35) Mean Corpuscular Hemoglobin Concent 33 g/dL (31-37) Red Cell Distribution Width 13.7 % (11.5-14.5) Platelet Count 178 x10^3/uL (140-400) Neutrophils (%) (Auto) 75 % (31-73) H Lymphocytes (%) (Auto) 19 % (24-48) L Monocytes (%) (Auto) 6 % (0-9) Eosinophils (%) (Auto) 0 % (0-3) Basophils (%) (Auto) 0 % (0-3) Neutrophils # (Auto) 9.0 x10^3uL (1.8-7.7) H Lymphocytes # (Auto) 2.2 x10^3/uL (1.0-4.8) Monocytes # (Auto) 0.8 x10^3/uL (0.0-1.1) Eosinophils # (Auto) 0.0 x10^3/uL (0.0-0.7) Basophils # (Auto) 0.0 x10^3/uL (0.0-0.2) Sodium Level 135 mmol/L (136-145) L Potassium Level 3.5 mmol/L (3.5-5.1) Chloride Level 94 mmol/L (98-107) L Carbon Dioxide Level 28 mmol/L (21-32) Anion Gap 13 (6-14) Blood Urea Nitrogen 22 mg/dL (8-26) Creatinine 2.0 mg/dL (0.7-1.3) H Estimated GFR (Cockcroft-Gault) 33.6 Glucose Level 337 mg/dL (70-99) H Calcium Level 8.8 mg/dL (8.5-10.1) Total Bilirubin 1.8 mg/dL (0.2-1.0) H Direct Bilirubin 0.6 mg/dL (0.0-0.2) H Aspartate Amino Transferase (AST) 39 U/L (15-37) H Alanine Aminotransferase (ALT) 68 U/L (16-63) H Alkaline Phosphatase 90 U/L (46-116) Troponin I Quantitative 0.061 ng/mL (0.000-0.055) IQ-Muo-B-Type Natriuretic Peptide 89953 pg/mL (0-124) H Total Protein 8.2 g/dL (6.4-8.2) Albumin 3.8 g/dL (3.4-5.0) Lipase 142 U/L (73-393) Laboratory Tests 08/16/17 14:40 Laboratory Tests 08/16/17 14:40 EKG EKG [] Radiology/Procedures Radiology/Procedures [] Course & Med Decision Making Course & Med Decision Making Pertinent Labs and Imaging studies reviewed. (See chart for details) [] Dragon Disclaimer Dragon Disclaimer This electronic medical record was generated, in whole or in part, using a voice recognition dictation system. Intubation Procedure Intub Indication: Respiratory failure Consent: Unable to give consent due to emergent nature. Medications Used: none required Procedure: The patient was placed in the appropriate position. Intubation was performed using video laryngoscopy with 7.5 mm ETT. ETT secured by RT. Initial confirmation of placement included visualization of tube passing through the cords, bilateral breath sounds, tube fogging, adequate chest rise, adequate pulse oximetry reading. A chest x-ray to verify correct placement of the tube was not obtained as the patient . The patient tolerated the procedure well. Complications: none. Departure Departure Impression: Primary Impression: Acute congestive heart failure Additional Impressions: CHF (congestive heart failure) Pulmonary edema Elevated troponin Disposition: 20 Condition: Referrals: RENATE ALSTON MD (PCP) Problem Qualifiers ANGELI JAMISON MD Aug 16, 2017 23:24
[2017-08-17] MEDS ORDERED: glipiZIDE 5 MG TABLET PO SCH (07:30)
--- NOTE | 2017-08-27 09:56 | DS ---
DATE OF DISCHARGE: 08/16/2017 ADMIT DIAGNOSES: 1. Acute congestive heart failure. 2. Pulmonary edema. 3. Non-ST elevated myocardial infarction. HISTORY OF PRESENT ILLNESS AND HOSPITAL COURSE: This patient is a 67-year-old male with long history of uncontrolled diabetes, came to the Emergency Room with increasing shortness of breath and leg swelling, discharged approximately 3-4 days prior to admission, came to the hospital, was found to be hypoxic with evidence of congestive heart failure by BNP. He was directly admitted to the floor for rule out PR and diuresis. Cardiology was consulted and within 2 hours of being on the floor, the patient was found unresponsive. Attempts at resuscitation were done by Emergency Room physician, but the patient was unable to be recovered and was pronounced on the evening of 08/16/2017. Documentation is by ER physician only. The patient was not seen by Cardiology or primary care prior to being found unresponsive. Information was obtained from medical record, ER physician and medical nursing staff on floor. Cause of was presumed as congestive heart failure due to acute PR. BRANDON ROTHMAN MD DR: MICHAEL/aiden JOB#: [id number] / [id number]
== END 2017-08-16 23:55 | disposition expired ==
LOC: ER 12:53 → 2 NORTH 16:13
PROVIDERS: ADMIT Family Medicine; ATTEND Family Medicine
PROC: 0BH18EZ Insertion of Endotracheal Airway into Trachea, Via Natural or Artificial Opening Endoscopic (ICD-10-PCS; principal; 2017-08-16)
PROC: 5A12012 Performance of Cardiac Output, Single, Manual (ICD-10-PCS; 2017-08-16)
DX: I21.4 Non-ST elevation (NSTEMI) myocardial infarction (principal); J96.91 Respiratory failure, unspecified with hypoxia; I50.9 Heart failure, unspecified; R06.81 Apnea, not elsewhere classified; I45.81 Long QT syndrome; E11.9 Type 2 diabetes mellitus without complications; R00.0 Tachycardia, unspecified; R74.8 Abnormal levels of other serum enzymes
CPT/HCPCS: 31500; 36415; 71010; 80048; 80076; 82962; 83690; 83880; 84484; 85025; 93005; 94640; 96374; J0171; J1650; J1815; J1940; J7620; 99285-25